=== PATIENT | male | born 1980 | race African-American/Black ===

== ENCOUNTER 2017-12-08 09:05 | Inpatient (IN) | payer OTHER ==
[2017-12-08 10:19] VITALS: BMI 21.5
--- NOTE | 2017-12-08 11:04 | HP ---
COWS - Scale Resting Pulse: 1= [place] 81-100 Sweatin=Flushed/Facial Moisture Restless Observation: 3= Extraneous Movement Pupil Size: 2= Moderately Dilated Bone or Joint Aches: 2= Severe Diffuse Aches Runny Nose/ Eye Tearin= Runny Nose/Eyes GI Upset > 30mins: 3= Vomiting/Diarrhea Tremor Observation: 2= Slight Tremor Visible Yawning Observation: 2= >3x During Session Anxiety or Irritability: 2=Irritable/Anxious Goose Flesh Skin: 0=Smooth Skin COWS Score: 21 CIWA Score - CIWA Score Nausea/Vomitin Muscle Tremors: 3 Anxiety: 3 Agitation: 3 Paroxysmal Sweats: 2 Orientation: 0-Oriented Tacttile Disturbances: 2-Mild Itch/Numbness/Burn Auditory Disturbances: 2-Mild Harshness/Frighten Visual Disturbances: 1-Very Mild Sensitivity Headache: 2-Mild CIWA-Ar Total Score: 21 Admission ROS BHS - HPI Chief Complaint: I NEED HELP TO STOP USING HEROIN,ALCOHOL,XANAX, Allergies/Adverse Reactions: Allergies Allergy/AdvReac Type Severity Reaction Status Date / Time mushroom Allergy Mild Swelling Verified 12/08/17 11:10 seafood Allergy Severe Swelling Uncoded 12/08/17 11:10 History of Present Illness: THIS 37 YEARS OLD WITH HEROIN,ALCOHOL,AND XANAX DEPENDENCE,SEEKING DETOX, WITHDRAWAL SYMPTOM,LAST DETOX [facility] 11/19 DENIED MEDICAL PROBLEM MULTIPLE ADMISSIONS IN THE PAST NICOTINE DEPENDENCE SYNCOPE ALCOHOL AND DRUG RELATED WEIGHT LOSS LONGEST PERIOD OF SOBRIETY 2 YEARS Exam Limitations: No Limitations - Ebola screening Have you traveled outside of the country in the last 21 days: No (N) Have you had contact with anyone from an Ebola affected area: No Have you been sick,other than usual withdrawal symptoms: No Do you have a fever: No - Review of Systems Constitutional: Chills, Loss of Appetite, Malaise, Night Sweats, Changes in sleep, Weakness, Unintentional Wgt. Loss EENT: reports: Tearing, Nose Congestion Respiratory: reports: No Symptoms reported Cardiac: reports: No Symptoms Reported GI: reports: Diarrhea, Nausea, Vomiting, Abdominal cramping : reports: No Symptoms Reported Musculoskeletal: reports: Back Pain, Joint Pain, Muscle Pain Neuro: reports: Headache, Tremors Endocrine: reports: No Symptoms Reported Hematology: reports: No Symptoms Reported Psychiatric: reports: No Sypmtoms Reported, Judgement Intact, Mood/Affect Appropiate, Orientated x3 Patient History - Patient Medical History Hx Anemia: No Hx Asthma: No Hx Chronic Obstructive Pulmonary Disease (COPD): No Hx Cancer: No Hx Cardiac Disorders: No Hx Congestive Heart Failure: No Hx Hypertension: No Hx Hypercholesterolemia: No Hx Pacemaker: No HX Cerebrovascular Accident: No Hx Seizures: No Hx Dementia: No Hx Diabetes: No Hx Gastrointestinal Disorders: No Hx Liver Disease: No Hx Genitourinary Disorders: No Hx Sexually Transmitted Disorders: Yes (CHLAMYDIA) Hx Renal Disease (ESRD): No Hx Thyroid Disease: No Hx Human Immunodeficiency Virus (HIV): No (LAST 11/19 NEGATIVE) Hx Hepatitis C: No Hx Depression: No Hx Suicide Attempt: No Hx Bipolar Disorder: No Hx Schizophrenia: No Other Medical History: NO SUICIDAL,NO HOMICIDAL - Patient Surgical History Past Surgical History: No - PPD History Previous Implant?: Yes Documented Results: Negative w/o proof Implanted On Prior [facility] Admission?: No PPD to be Administered?: Yes - Smoking Cessation Smoking history: Current every day smoker Have you smoked in the past 12 months: Yes Aproximately how many cigarettes per day: 10 Cigars Per Day: 0 Hx Chewing Tobacco Use: No Initiated information on smoking cessation: Yes 'Breaking Loose' booklet given: 12/08/17 - Substance & Tx. History Hx Alcohol Use: Yes Hx Substance Use: Yes Substance Use Type: Alcohol, Heroin, Tranquilizers Hx Substance Use Treatment: Yes ([facility]) - Substances Abused Alcohol Route: Oral Frequency: Daily Amount used: Beer-8-24oz, Gin 2 pints Age of first use: 16 Date of Last Use: 12/08/17 Heroin Route: Injection Frequency: Daily Amount used: 6 bags Age of first use: 35 Date of Last Use: 12/08/17 Alprazolam (Xanax) Route: Oral Frequency: Daily Amount used: 2-3 sticks (6mg) Age of first use: 35 Date of Last Use: 12/07/17 Family Disease History - Family Disease History Family Disease History: Other: Father (DSA) Admission Physical Exam BHS - Vital Signs Vital Signs: Vital Signs - 24 hr 12/08/17 10:17 Temperature 96.3 F L Pulse Rate 94 H Respiratory 18 Rate Blood Pressure 136/71 - Physical General Appearance: Yes: Moderate Distress, Tremorous, Irritable, Sweating, Anxious HEENTM: Yes: Normal ENT Inspection, [place], Pharynx Normal Respiratory: Yes: Lungs Clear, Normal Breath Sounds, No Respiratory Distress Neck: Yes: Within Normal Limits, Supple, Trachea in good position Breast: Yes: Within Normal Limits Cardiology: Yes: Within Normal Limits, Regular Rate, S1, S2, Murmur Abdominal: Yes: Normal Bowel Sounds, Non Tender, Flat, Soft Genitourinary: Yes: Within Normal Limits Back: Yes: Normal Inspection, Muscle Spasm Musculoskeletal: Yes: full range of Motion, Back pain, Joint Stiffness, Muscle Pain Extremities: Yes: Normal Range of Motion, Tremors Neurological: Yes: supply teacher II-XII NML intact, Alert, Motor Strength 5/5, Normal Mood /Affect Integumentary: Yes: Dry, Track Urias, Other (TATTOES) Lymphatic: Yes: Within Normal Limits - Diagnostic (1) Opioid dependence with withdrawal Current Visit: Yes Status: Acute (2) Alcohol dependence with uncomplicated withdrawal Current Visit: Yes Status: Acute (3) Uncomplicated sedative, hypnotic or anxiolytic withdrawal Current Visit: Yes Status: Acute (4) Nicotine dependence Current Visit: Yes Status: Chronic Qualifiers: Nicotine product type: cigarettes Substance use status: uncomplicated Qualified Code(s): F17.210 - Nicotine dependence, cigarettes, uncomplicated (5) Weight loss Current Visit: Yes Status: Acute Cleared for Admission [facility] - Detox or Rehab [facility] Level of Care: Medically Managed Detox Regimen/Protocol: Methadone/Valium S Breath Alcohol Content Breath Alcohol Content: 0.133 Urine Drug Screen - Results Drug Screen Negative: No Urine Drug Screen Results: OPI-Opiates, BZO-Benzodiazepines, MTD-Methadone, TCA- Tricyclic Antidepress, OXY-Oxycodone
[2017-12-08] MEDS ORDERED: MAGNESIUM CITRATE 300 ML BOTTLE PO PRN (11:25)
[2017-12-08] MEDS ORDERED: MAGNESIUM HYDROX 2400MG/30ML ORAL SUSPENSION 30 ML CUP PO PRN (11:25)
[2017-12-08] MEDS ORDERED: IBUPROFEN 400 MG TABLET (FP) PO PRN (11:25)
[2017-12-08] MEDS ORDERED: P-EPHED 60MG/TRIPROLIDI 2.5MG TABLET PO PRN (11:25)
[2017-12-08] MEDS ORDERED: MAG HYDROX/AL HYDROX/SIMETH 30 ML UNIT-DOSE CUP PO PRN (11:25)
[2017-12-08] MEDS ORDERED: MENTHOL/PHENOL 1 EACH UD MM PRN (11:25)
[2017-12-08] MEDS ORDERED: LOPERAMIDE HCL 2 MG CAPSULE PO PRN (11:25)
[2017-12-08] MEDS ORDERED: ACETAMINOPHEN 325 MG TABLET (FP) PO PRN (11:25)
[2017-12-08] MEDS ORDERED: guaiFENesin/D-METHORPHAN HB 10 ML UNIT-DOSE CUPS PO PRN (11:25)
[2017-12-08] MEDS ORDERED: METHADONE HCL 10 MG TABLET (FOR DETOX USE ONLY) PO ONE ×2 (11:35→23:00)
[2017-12-08] MEDS ORDERED: diazePAM 5 MG TABLET PO ONE (11:35)
[2017-12-08] MEDS ORDERED: METHADONE HCL 10 MG TABLET (FOR DETOX USE ONLY) ONE (13:58)
[2017-12-08] MEDS: NICOTINE 21 MG/24 HOURS TOPICAL PATCH TD SCH (14:12)
[2017-12-08] MEDS: diazePAM 5 MG TABLET PO SCH ×2 (14:40→22:12)
[2017-12-08] MEDS: CYCLOBENZAPRINE HCL 10 MG TABLET (FP) PO PRN (14:49)
--- NOTE | 2017-12-08 15:38 | EKG ---
Test Reason : Blood Pressure : / mmHG Vent. Rate : 095 BPM Atrial Rate : 095 BPM P-R Int : 138 ms QRS Dur : 084 ms QT Int : 348 ms P-R-T Axes : 074 067 061 degrees QTc Int : 437 ms NORMAL SINUS RHYTHM WITH SINUS ARRHYTHMIA CANNOT RULE OUT ANTERIOR INFARCT , AGE UNDETERMINED ABNORMAL ECG NO PREVIOUS ECGS AVAILABLE Confirmed by JEMIMA EDOUARD MD ([id number]) on 12/08/2017 3:38:02 PM Referred By: Confirmed By:JEMIMA EDOUARD MD
[2017-12-08 17:50] LABS: HEMATOCRIT 41.1 % (35.4-49); HEMOGLOBIN 13.6 GM/dL (11.7-16.9); MEAN CELL VOLUME 93.7 fl (80-96); MEAN PLT VOLUME 9.2 fl (7.5-11.1); PLATELET COUNT 227 K/MM3 (134-434); RBC 4.39 M/mm3 (4.00-5.60); RDW 13.4 % (11.9-15.9)
[2017-12-08 18:10] LABS: ALBUMIN 4.3 g/dl (3.4-5.0); ALK PHOS 80 U/L (45-117); ANION GAP 11 (8-16); BILIRUBIN,TOTAL 0.3 mg/dL (0.2-1.0); BLOOD UREA NITROGEN 10 mg/dL (7-18); CALCIUM 8.6 mg/dL (8.5-10.1); CHLORIDE 103 mmol/L (98-107); CO2 28 mmol/L (21-32); CREATININE 0.7 mg/dL (0.7-1.3); GLUCOSE,RANDOM 95 mg/dL (74-106); POTASSIUM 3.8 mmol/L (3.5-5.1); SGOT/AST 26 U/L (15-37); SGPT/ALT 19 U/L (12-78); SODIUM 142 mmol/L (136-145); TOT PROT 7.5 g/dl (6.4-8.2)
[2017-12-08 18:56] LABS: URINE APPEARANCE TURBID; URINE BILIRUBIN NEGATIVE (NEGATIVE); URINE BLOOD NEGATIVE (NEGATIVE); URINE COLOR YELLOW; URINE GLUCOSE (UA) NEGATIVE (NEGATIVE); URINE KETONE NEGATIVE (NEGATIVE); URINE LEUK ESTERASE NEGATIVE (NEGATIVE); URINE NITRITE NEGATIVE (NEGATIVE); URINE UROBILINOGEN NEGATIVE mg/dL (0.2-1.0)
[2017-12-08 18:58] LABS: URINE PROTEIN 1+ (NEGATIVE)
[2017-12-08 19:02] LABS: EPI CELLS RARE /HPF (FEW); URINE MUCUS MANY
[2017-12-08] MEDS: cloNIDine HCL 0.1 MG TABLET PO SCH (22:12)
[2017-12-08] MEDS: hydrOXYzine PAMOATE 25 MG CAPSULE (FP) PO PRN (22:12)
[2017-12-08] MEDS: THIAMINE HCL 100 MG TABLET (FP) PO SCH (22:12)
[2017-12-08] MEDS ORDERED: ONDANSETRON *ODT* 4 MG TABLET SL PRN (22:53)
[2017-12-09] MEDS: diazePAM 5 MG TABLET PO SCH ×3 (06:00→22:05)
[2017-12-09] MEDS ORDERED: METHADONE HCL 10 MG TABLET (FOR DETOX USE ONLY) PO SCH (10:00)
[2017-12-09] MEDS: PRENATAL VITAMINS W/ FOLIC ACID TABLET (FP) PO SCH (10:15)
[2017-12-09] MEDS: diazePAM 5 MG TABLET PO PRN ×2 (10:15→17:48)
[2017-12-09] MEDS: NICOTINE 21 MG/24 HOURS TOPICAL PATCH TD SCH (10:16)
[2017-12-09] MEDS: cloNIDine HCL 0.1 MG TABLET PO SCH ×2 (10:16→23:34)
--- NOTE | 2017-12-09 17:36 | PN ---
S CIWA - CIWA Score Nausea/Vomitin Muscle Tremors: 2 Anxiety: 3 Agitation: 2 Paroxysmal Sweats: 3 Orientation: 0-Oriented Tacttile Disturbances: 2-Mild Itch/Numbness/Burn Auditory Disturbances: 0-None Visual Disturbances: 0-None Headache: 0-None Present CIWA-Ar Total Score: 18 BHS COWS - Scale Resting Pulse: 0= [place] 80 or Below Sweatin=Flushed/Facial Moisture Restless Observation: 1= Difficult to Sit Still Pupil Size: 0= Normal to Room Light Bone or Joint Aches: 2= Severe Diffuse Aches Runny Nose/ Eye Tearin= None GI Upset > 30mins: 3= Vomiting/Diarrhea Tremor Observation of Outstretched Hands: 0= None Yawning Observation: 1= 1-2x During Session Anxiety or Irritability: 2=Irritable/Anxious Goose Flesh Skin: 3=Piloerection COWS Score: 14 BHS Progress Note (SOAP) Subjective: Body Aches, Sweating, Vomiting. Objective: PATIENT A & O X 3, OBSERVED AMBULATING ON UNIT. NO ACUTE DISTRESS. 12/09/17 17:32 Vital Signs Temperature 96.7 F L 12/09/17 14:20 Pulse Rate 78 12/09/17 14:20 Respiratory Rate 18 12/09/17 14:20 Blood Pressure 98/59 12/09/17 14:20 O2 Sat by Pulse Oximetry (%) Laboratory Tests 12/08/17 12/08/17 12/08/17 15:31 15:31 15:31 WBC 10.0 RBC 4.39 Hgb 13.6 Hct 41.1 MCV 93.7 MCH 31.0 MCHC 33.0 RDW 13.4 Plt Count 227 MPV 9.2 Sodium 142 Potassium 3.8 Chloride 103 Carbon Dioxide 28 Anion Gap 11 BUN 10 Creatinine 0.7 Creat Clearance w eGFR > 60 Random Glucose 95 Calcium 8.6 Total Bilirubin 0.3 AST 26 ALT 19 Alkaline Phosphatase 80 Total Protein 7.5 Albumin 4.3 Urine Color Urine Appearance Urine pH Ur Specific [place] Urine Protein Urine Glucose (UA) Urine Ketones Urine Blood Urine Nitrite Urine Bilirubin Urine Urobilinogen Ur Leukocyte Esterase Urine WBC (Auto) Urine RBC (Auto) Ur Epithelial Cells Urine Mucus RPR Titer Nonreactive HIV 1&2 Antibody Screen HIV P24 Antigen 12/08/17 12/09/17 Unknown 08:30 WBC RBC Hgb Hct MCV MCH MCHC RDW Plt Count MPV Sodium Potassium Chloride Carbon Dioxide Anion Gap BUN Creatinine Creat Clearance w eGFR Random Glucose Calcium Total Bilirubin AST ALT Alkaline Phosphatase Total Protein Albumin Urine Color Yellow Urine Appearance Turbid Urine pH 6.0 Ur Specific [place] 1.027 Urine Protein 1+ H Urine Glucose (UA) Negative Urine Ketones Negative Urine Blood Negative Urine Nitrite Negative Urine Bilirubin Negative Urine Urobilinogen Negative Ur Leukocyte Esterase Negative Urine WBC (Auto) 83 Urine RBC (Auto) 4 Ur Epithelial Cells Rare Urine Mucus Many RPR Titer HIV 1&2 Antibody Screen Negative HIV P24 Antigen Negative LABS NOTED. Assessment: 12/09/17 17:32 WITHDRAWAL SYMPTOMS. Plan: CONTINUE DETOX. PATIENT REPORTING VOMITING WITHIN SHORT TIME AFTER TAKING DETOX METHADONE IN AM. ZOFRAN SL ORDERED TO BE TAKEN PRIOR TO DAILY AM DOSING OF METHADONE DETOX. INCREASE DAILY PO FLUID INTAKE.
[2017-12-09] MEDS: THIAMINE HCL 100 MG TABLET (FP) PO SCH (22:04)
[2017-12-09] MEDS: CYCLOBENZAPRINE HCL 10 MG TABLET (FP) PO PRN (22:05)
[2017-12-09] MEDS: hydrOXYzine PAMOATE 25 MG CAPSULE (FP) PO PRN (22:07)
[2017-12-10] MEDS: ONDANSETRON *ODT* 4 MG TABLET SL SCH (09:08)
[2017-12-10] MEDS: METHADONE HCL 5 MG TABLET (FOR DETOX USE ONLY) PO SCH (10:07)
[2017-12-10] MEDS: diazePAM 5 MG TABLET PO SCH (10:07)
[2017-12-10] MEDS: NICOTINE 21 MG/24 HOURS TOPICAL PATCH TD SCH (10:08)
[2017-12-10] MEDS: PRENATAL VITAMINS W/ FOLIC ACID TABLET (FP) PO SCH (10:08)
[2017-12-10] MEDS: cloNIDine HCL 0.1 MG TABLET PO SCH (10:08)
[2017-12-10] MEDS ORDERED: COLLOIDAL OATMEAL 1 BAR EACH TP PRN (10:22)
--- NOTE | 2017-12-10 15:27 | PN ---
S CIWA - CIWA Score Nausea/Vomitin Muscle Tremors: 3 Anxiety: 4-Mod. Anxious/Guarded Agitation: 4-Moderately Restless Paroxysmal Sweats: 3 Orientation: 0-Oriented Tacttile Disturbances: 0-None Auditory Disturbances: 0-None Visual Disturbances: 0-None Headache: 0-None Present CIWA-Ar Total Score: 17 BHS COWS - Scale Resting Pulse: 0= [place] 80 or Below Sweatin= Chills/Flushing Restless Observation: 3= Extraneous Movement Pupil Size: 0= Normal to Room Light Bone or Joint Aches: 2= Severe Diffuse Aches Runny Nose/ Eye Tearin= None GI Upset > 30mins: 2= Nausea/Diarrhea Tremor Observation of Outstretched Hands: 2= Slight Tremor Visible Yawning Observation: 1= 1-2x During Session Anxiety or Irritability: 2=Irritable/Anxious Goose Flesh Skin: 0=Smooth Skin COWS Score: 13 S Progress Note (SOAP) Subjective: sweating, anxious, interrupted sleep Objective: 12/10/17 15:25 Last Vital Signs Temp Pulse Resp BP Pulse Ox 98 F 73 18 105/73 12/10/17 14:17 12/10/17 14:17 12/10/17 14:17 12/10/17 14:17 Laboratory Tests 12/08/17 12/08/17 12/08/17 15:31 15:31 15:31 WBC 10.0 RBC 4.39 Hgb 13.6 Hct 41.1 MCV 93.7 MCH 31.0 MCHC 33.0 RDW 13.4 Plt Count 227 MPV 9.2 Sodium 142 Potassium 3.8 Chloride 103 Carbon Dioxide 28 Anion Gap 11 BUN 10 Creatinine 0.7 Creat Clearance w eGFR > 60 Random Glucose 95 Calcium 8.6 Total Bilirubin 0.3 AST 26 ALT 19 Alkaline Phosphatase 80 Total Protein 7.5 Albumin 4.3 Urine Color Urine Appearance Urine pH Ur Specific [place] Urine Protein Urine Glucose (UA) Urine Ketones Urine Blood Urine Nitrite Urine Bilirubin Urine Urobilinogen Ur Leukocyte Esterase Urine WBC (Auto) Urine RBC (Auto) Ur Epithelial Cells Urine Mucus RPR Titer Nonreactive HIV 1&2 Antibody Screen HIV P24 Antigen 12/08/17 12/09/17 Unknown 08:30 WBC RBC Hgb Hct MCV MCH MCHC RDW Plt Count MPV Sodium Potassium Chloride Carbon Dioxide Anion Gap BUN Creatinine Creat Clearance w eGFR Random Glucose Calcium Total Bilirubin AST ALT Alkaline Phosphatase Total Protein Albumin Urine Color Yellow Urine Appearance Turbid Urine pH 6.0 Ur Specific [place] 1.027 Urine Protein 1+ H Urine Glucose (UA) Negative Urine Ketones Negative Urine Blood Negative Urine Nitrite Negative Urine Bilirubin Negative Urine Urobilinogen Negative Ur Leukocyte Esterase Negative Urine WBC (Auto) 83 Urine RBC (Auto) 4 Ur Epithelial Cells Rare Urine Mucus Many RPR Titer HIV 1&2 Antibody Screen Negative HIV P24 Antigen Negative Labs noted: abnormal UA Assessment: 12/10/17 15:26 Withdrawal symptoms Noted with abnormal UA Plan: Continue detox Abnormal UA: encouraged to drink lots of water, repeat UA
[2017-12-10] MEDS: diazePAM 5 MG TABLET PO PRN (17:51)
[2017-12-10] MEDS: CYCLOBENZAPRINE HCL 10 MG TABLET (FP) PO PRN (17:52)
[2017-12-11] MEDS: diazePAM 5 MG TABLET PO PRN (05:38)
[2017-12-11] MEDS: CYCLOBENZAPRINE HCL 10 MG TABLET (FP) PO PRN ×2 (05:38→18:05)
--- NOTE | 2017-12-11 09:22 | PN ---
[facility] Progress Note (SOAP) Subjective: "I had a good weekend. The methadone is making me nauseous, it always does." Patient c/o anxiety and weight loss. Objective: 12/11/17 09:20 Vital Signs 12/11/17 12/11/17 03:30 06:42 Temperature 97.4 F L Pulse Rate 81 Respiratory 18 16 Rate Blood Pressure 122/69 Laboratory Last Values WBC 10.0 K/mm3 (4.0-10.0) 12/08/17 15:31 RBC 4.39 M/mm3 (4.00-5.60) 12/08/17 15:31 Hgb 13.6 GM/dL (11.7-16.9) 12/08/17 15:31 Hct 41.1 % (35.4-49) 12/08/17 15:31 MCV 93.7 fl (80-96) 12/08/17 15:31 MCH 31.0 pg (25.7-33.7) 12/08/17 15:31 MCHC 33.0 g/dl (32.0-35.9) 12/08/17 15:31 RDW 13.4 % (11.9-15.9) 12/08/17 15:31 Plt Count 227 K/MM3 (134-434) 12/08/17 15:31 MPV 9.2 fl (7.5-11.1) 12/08/17 15:31 Sodium 142 mmol/L (136-145) 12/08/17 15:31 Potassium 3.8 mmol/L (3.5-5.1) 12/08/17 15:31 Chloride 103 mmol/L (98-107) 12/08/17 15:31 Carbon Dioxide 28 mmol/L (21-32) 12/08/17 15:31 Anion Gap 11 (8-16) 12/08/17 15:31 BUN 10 mg/dL (7-18) 12/08/17 15:31 Creatinine 0.7 mg/dL (0.7-1.3) 12/08/17 15:31 Creat Clearance w eGFR > 60 (>60) 12/08/17 15:31 Random Glucose 95 mg/dL (74-106) 12/08/17 15:31 Calcium 8.6 mg/dL (8.5-10.1) 12/08/17 15:31 Total Bilirubin 0.3 mg/dL (0.2-1.0) 12/08/17 15:31 AST 26 U/L (15-37) 12/08/17 15:31 ALT 19 U/L (12-78) 12/08/17 15:31 Alkaline Phosphatase 80 U/L (45-117) 12/08/17 15:31 Total Protein 7.5 g/dl (6.4-8.2) 12/08/17 15:31 Albumin 4.3 g/dl (3.4-5.0) 12/08/17 15:31 Urine Color Yellow 12/08/17 Unknown Urine Appearance Turbid 12/08/17 Unknown Urine pH 6.0 (5.0-8.0) 12/08/17 Unknown Ur Specific [place] 1.027 (1.001-1.035) 12/08/17 Unknown Urine Protein 1+ (NEGATIVE) H 12/08/17 Unknown Urine Glucose (UA) Negative (NEGATIVE) 12/08/17 Unknown Urine Ketones Negative (NEGATIVE) 12/08/17 Unknown Urine Blood Negative (NEGATIVE) 12/08/17 Unknown Urine Nitrite Negative (NEGATIVE) 12/08/17 Unknown Urine Bilirubin Negative (NEGATIVE) 12/08/17 Unknown Urine Urobilinogen Negative mg/dL (0.2-1.0) 12/08/17 Unknown Ur Leukocyte Esterase Negative (NEGATIVE) 12/08/17 Unknown Urine WBC (Auto) 83 /hpf (3-5) 12/08/17 Unknown Urine RBC (Auto) 4 /hpf (0-3) 12/08/17 Unknown Ur Epithelial Cells Rare /HPF (FEW) 12/08/17 Unknown Urine Mucus Many 12/08/17 Unknown RPR Titer Nonreactive (NONREACTIVE) 12/08/17 15:31 HIV 1&2 Antibody Screen Negative 12/09/17 08:30 HIV P24 Antigen Negative 12/09/17 08:30 Assessment: Withdrawal symptoms 12/11/17 09:21 Plan: Continue detox
[2017-12-11] MEDS: METHADONE HCL 5 MG TABLET (FOR DETOX USE ONLY) PO SCH (10:08)
[2017-12-11] MEDS: PRENATAL VITAMINS W/ FOLIC ACID TABLET (FP) PO SCH (10:08)
[2017-12-11] MEDS: cloNIDine HCL 0.1 MG TABLET PO SCH ×3 (10:09→23:29)
[2017-12-11] MEDS: ONDANSETRON *ODT* 4 MG TABLET SL SCH (10:09)
[2017-12-11] MEDS: diazePAM 5 MG TABLET PO SCH ×3 (10:09→23:29)
[2017-12-11] MEDS: NICOTINE 21 MG/24 HOURS TOPICAL PATCH TD SCH (10:09)
--- NOTE | 2017-12-11 16:14 | PN ---
S Progress Note Note: PT REPORTS DYSURIA X 3 DAYS AND SMALL OUTPUT EACH TIME. STATES LOWER ABDOMINAL FULLNESS. ALERT O X 3. OOB AMBULATING AND IN NO DISTRESS. Laboratory Last Values WBC 10.0 K/mm3 (4.0-10.0) 12/08/17 15:31 RBC 4.39 M/mm3 (4.00-5.60) 12/08/17 15:31 Hgb 13.6 GM/dL (11.7-16.9) 12/08/17 15:31 Hct 41.1 % (35.4-49) 12/08/17 15:31 MCV 93.7 fl (80-96) 12/08/17 15:31 MCH 31.0 pg (25.7-33.7) 12/08/17 15:31 MCHC 33.0 g/dl (32.0-35.9) 12/08/17 15:31 RDW 13.4 % (11.9-15.9) 12/08/17 15:31 Plt Count 227 K/MM3 (134-434) 12/08/17 15:31 MPV 9.2 fl (7.5-11.1) 12/08/17 15:31 Sodium 142 mmol/L (136-145) 12/08/17 15:31 Potassium 3.8 mmol/L (3.5-5.1) 12/08/17 15:31 Chloride 103 mmol/L (98-107) 12/08/17 15:31 Carbon Dioxide 28 mmol/L (21-32) 12/08/17 15:31 Anion Gap 11 (8-16) 12/08/17 15:31 BUN 10 mg/dL (7-18) 12/08/17 15:31 Creatinine 0.7 mg/dL (0.7-1.3) 12/08/17 15:31 Creat Clearance w eGFR > 60 (>60) 12/08/17 15:31 Random Glucose 95 mg/dL (74-106) 12/08/17 15:31 Calcium 8.6 mg/dL (8.5-10.1) 12/08/17 15:31 Total Bilirubin 0.3 mg/dL (0.2-1.0) 12/08/17 15:31 AST 26 U/L (15-37) 12/08/17 15:31 ALT 19 U/L (12-78) 12/08/17 15:31 Alkaline Phosphatase 80 U/L (45-117) 12/08/17 15:31 Total Protein 7.5 g/dl (6.4-8.2) 12/08/17 15:31 Albumin 4.3 g/dl (3.4-5.0) 12/08/17 15:31 Urine Color Yellow 12/08/17 Unknown Urine Appearance Turbid 12/08/17 Unknown Urine pH 6.0 (5.0-8.0) 12/08/17 Unknown Ur Specific [place] 1.027 (1.001-1.035) 12/08/17 Unknown Urine Protein 1+ (NEGATIVE) H 12/08/17 Unknown Urine Glucose (UA) Negative (NEGATIVE) 12/08/17 Unknown Urine Ketones Negative (NEGATIVE) 12/08/17 Unknown Urine Blood Negative (NEGATIVE) 12/08/17 Unknown Urine Nitrite Negative (NEGATIVE) 12/08/17 Unknown Urine Bilirubin Negative (NEGATIVE) 12/08/17 Unknown Urine Urobilinogen Negative mg/dL (0.2-1.0) 12/08/17 Unknown Ur Leukocyte Esterase Negative (NEGATIVE) 12/08/17 Unknown Urine WBC (Auto) 83 /hpf (3-5) 12/08/17 Unknown Urine RBC (Auto) 4 /hpf (0-3) 12/08/17 Unknown Ur Epithelial Cells Rare /HPF (FEW) 12/08/17 Unknown Urine Mucus Many 12/08/17 Unknown RPR Titer Nonreactive (NONREACTIVE) 12/08/17 15:31 HIV 1&2 Antibody Screen Negative 12/09/17 08:30 HIV P24 Antigen Negative 12/09/17 08:30 ABDOMEN:SOFT, BS+ UPPER QUADS. SLIGHT TENDERNESS TO LOWER ABDOMEN ON PALPATION. NO TENDERNESS TO UPPER AND MID ABDOMEN. SLIGHTLY DISTENDED LOWER ABDOMEN. LABS NOTED REPEAT UA PENDING R/O UTI PLAN:MONITOR URINE OUTPUT FOR NEXT 24 HRS. REPEAT UA; ADD UC TODAY PT UNABLE TO GIVE URINE NOTED ABOVE. SPOKE TO DR. HERNANDEZ AT [facility] AND PATIENT WILL BE TRANSFERRED VIA AMBULANCE TO [facility] FOR EVALUATION AND TREATMENT.
[2017-12-11] MEDS: hydrOXYzine PAMOATE 25 MG CAPSULE (FP) PO PRN (23:31)
[2017-12-11] MEDS: THIAMINE HCL 100 MG TABLET (FP) PO SCH ×2 (23:44)
[2017-12-12] MEDS ORDERED: ONDANSETRON *ODT* 4 MG TABLET SL ONE (09:33)
[2017-12-12] MEDS ORDERED: METHADONE HCL 10 MG TABLET (FOR DETOX USE ONLY) PO SCH (10:00)
[2017-12-12] MEDS ORDERED: diazePAM 5 MG TABLET PO SCH (10:00)
[2017-12-12 10:05] LABS: URINE APPEARANCE CLOUDY; URINE BILIRUBIN NEGATIVE (NEGATIVE); URINE BLOOD NEGATIVE (NEGATIVE); URINE COLOR YELLOW; URINE GLUCOSE (UA) NEGATIVE (NEGATIVE); URINE KETONE NEGATIVE (NEGATIVE); URINE LEUK ESTERASE NEGATIVE (NEGATIVE); URINE NITRITE NEGATIVE (NEGATIVE); URINE PROTEIN NEGATIVE (NEGATIVE); URINE UROBILINOGEN NEGATIVE mg/dL (0.2-1.0)
[2017-12-12] MEDS: cloNIDine HCL 0.1 MG TABLET PO SCH (10:08)
[2017-12-12] MEDS: PRENATAL VITAMINS W/ FOLIC ACID TABLET (FP) PO SCH (10:08)
[2017-12-12] MEDS: NICOTINE 21 MG/24 HOURS TOPICAL PATCH TD SCH (10:08)
[2017-12-12] MEDS: CYCLOBENZAPRINE HCL 10 MG TABLET (FP) PO PRN (10:08)
--- NOTE | 2017-12-12 10:41 | PN ---
[facility] Progress Note (SOAP) Subjective: PT RETURNED FROM [facility] LAST NIGHT AFTER STABILIZATION. ABLE TO URINATE ON HIS OWN. C/O NAUSEA ANXIETY. Objective: 12/12/17 10:38 Vital Signs Temperature 98.2 F 12/12/17 10:10 Pulse Rate 82 12/12/17 10:10 Respiratory Rate 18 12/12/17 10:10 Blood Pressure 108/65 12/12/17 10:10 O2 Sat by Pulse Oximetry (%) Laboratory Last Values WBC 10.0 K/mm3 (4.0-10.0) 12/08/17 15:31 RBC 4.39 M/mm3 (4.00-5.60) 12/08/17 15:31 Hgb 13.6 GM/dL (11.7-16.9) 12/08/17 15:31 Hct 41.1 % (35.4-49) 12/08/17 15:31 MCV 93.7 fl (80-96) 12/08/17 15:31 MCH 31.0 pg (25.7-33.7) 12/08/17 15:31 MCHC 33.0 g/dl (32.0-35.9) 12/08/17 15:31 RDW 13.4 % (11.9-15.9) 12/08/17 15:31 Plt Count 227 K/MM3 (134-434) 12/08/17 15:31 MPV 9.2 fl (7.5-11.1) 12/08/17 15:31 Sodium 142 mmol/L (136-145) 12/08/17 15:31 Potassium 3.8 mmol/L (3.5-5.1) 12/08/17 15:31 Chloride 103 mmol/L (98-107) 12/08/17 15:31 Carbon Dioxide 28 mmol/L (21-32) 12/08/17 15:31 Anion Gap 11 (8-16) 12/08/17 15:31 BUN 10 mg/dL (7-18) 12/08/17 15:31 Creatinine 0.7 mg/dL (0.7-1.3) 12/08/17 15:31 Creat Clearance w eGFR > 60 (>60) 12/08/17 15:31 Random Glucose 95 mg/dL (74-106) 12/08/17 15:31 Calcium 8.6 mg/dL (8.5-10.1) 12/08/17 15:31 Total Bilirubin 0.3 mg/dL (0.2-1.0) 12/08/17 15:31 AST 26 U/L (15-37) 12/08/17 15:31 ALT 19 U/L (12-78) 12/08/17 15:31 Alkaline Phosphatase 80 U/L (45-117) 12/08/17 15:31 Total Protein 7.5 g/dl (6.4-8.2) 12/08/17 15:31 Albumin 4.3 g/dl (3.4-5.0) 12/08/17 15:31 Urine Color Yellow 12/12/17 08:15 Urine Appearance Cloudy 12/12/17 08:15 Urine pH 7.0 (5.0-8.0) D 12/12/17 08:15 Ur Specific [place] 1.018 (1.001-1.035) 12/12/17 08:15 Urine Protein Negative (NEGATIVE) 12/12/17 08:15 Urine Glucose (UA) Negative (NEGATIVE) 12/12/17 08:15 Urine Ketones Negative (NEGATIVE) 12/12/17 08:15 Urine Blood Negative (NEGATIVE) 12/12/17 08:15 Urine Nitrite Negative (NEGATIVE) 12/12/17 08:15 Urine Bilirubin Negative (NEGATIVE) 12/12/17 08:15 Urine Urobilinogen Negative mg/dL (0.2-1.0) 12/12/17 08:15 Ur Leukocyte Esterase Negative (NEGATIVE) 12/12/17 08:15 Urine WBC (Auto) 83 /hpf (3-5) 12/08/17 Unknown Urine RBC (Auto) 4 /hpf (0-3) 12/08/17 Unknown Ur Epithelial Cells Rare /HPF (FEW) 12/08/17 Unknown Urine Mucus Many 12/08/17 Unknown RPR Titer Nonreactive (NONREACTIVE) 12/08/17 15:31 HIV 1&2 Antibody Screen Negative 12/09/17 08:30 HIV P24 Antigen Negative 12/09/17 08:30 Assessment: 12/12/17 10:38 WITHDRAWAL SX Plan: CONTINUE DETOX REPEAT UA AND UC RESULT PENDING
[2017-12-12 15:19] VITALS: BP 100/63; PULSE 77; TEMP 97.9
--- NOTE | 2017-12-12 15:55 | PN ---
[facility] Progress Note Note: PT DECLINED TO COMPLETE DETOX AND DEMANDED TO LEAVE TODAY. STATES HIS SIGNIFICANT OTHER IS IN AGREEMENT FOR THEM TO LEAVE TREATMENT TODAY. PT APPEARED VERY ANGRY AND AGITATED TOWARD ANY EFFORT BY STAFF OR THIS EXPERIMENTAL WORKER TO ENCOURAGE PT TO STAY IN TREATMENT AND SEEK AFTERCARE. PT IS ALERT O X 3. IN NAD. PT WAS NOT ABLE TO GIVE ANY INFORMATION ABOUT HIS PRIMARY CARE BUT STATES "I DON'T HAVE ANY AND I DON'T GET SICK. I GO TO THE EMERGENCY ROOM". PT REMINDED TO SEEK MEDICAL ATTENTION IN ANY ER NEAR HIM WHEN NEEDED.
--- NOTE | 2017-12-12 16:00 | DS ---
[facility] Detox Discharge Summary Admission Date: 12/08/17 Discharge Date: 12/12/17 - History Present History: Alcohol Dependence, Opioid Dependence, Sedative Dependence Additional Comments: DECLINED TO CONTINUE WITH DETOX. ALERT O X 3.NAD. Pertinent Past History: SEE DX BELOW - Physical Exam Results Vital Signs: Vital Signs Temperature 97.9 F 12/12/17 15:17 Pulse Rate 77 12/12/17 15:17 Respiratory Rate 18 12/12/17 15:17 Blood Pressure 100/63 12/12/17 15:17 O2 Sat by Pulse Oximetry (%) Pertinent Admission Physical Exam Findings: WITHDRAWAL SX Laboratory Tests 12/08/17 12/08/17 12/08/17 15:31 15:31 15:31 WBC 10.0 RBC 4.39 Hgb 13.6 Hct 41.1 MCV 93.7 MCH 31.0 MCHC 33.0 RDW 13.4 Plt Count 227 MPV 9.2 Sodium 142 Potassium 3.8 Chloride 103 Carbon Dioxide 28 Anion Gap 11 BUN 10 Creatinine 0.7 Creat Clearance w eGFR > 60 Random Glucose 95 Calcium 8.6 Total Bilirubin 0.3 AST 26 ALT 19 Alkaline Phosphatase 80 Total Protein 7.5 Albumin 4.3 Urine Color Urine Appearance Urine pH Ur Specific [place] Urine Protein Urine Glucose (UA) Urine Ketones Urine Blood Urine Nitrite Urine Bilirubin Urine Urobilinogen Ur Leukocyte Esterase Urine WBC (Auto) Urine RBC (Auto) Ur Epithelial Cells Urine Mucus RPR Titer Nonreactive HIV 1&2 Antibody Screen HIV P24 Antigen 12/08/17 12/09/17 12/12/17 Unknown 08:30 08:15 WBC RBC Hgb Hct MCV MCH MCHC RDW Plt Count MPV Sodium Potassium Chloride Carbon Dioxide Anion Gap BUN Creatinine Creat Clearance w eGFR Random Glucose Calcium Total Bilirubin AST ALT Alkaline Phosphatase Total Protein Albumin Urine Color Yellow Yellow Urine Appearance Turbid Cloudy Urine pH 6.0 7.0 D Ur Specific [place] 1.027 1.018 Urine Protein 1+ H Negative Urine Glucose (UA) Negative Negative Urine Ketones Negative Negative Urine Blood Negative Negative Urine Nitrite Negative Negative Urine Bilirubin Negative Negative Urine Urobilinogen Negative Negative Ur Leukocyte Esterase Negative Negative Urine WBC (Auto) 83 Urine RBC (Auto) 4 Ur Epithelial Cells Rare Urine Mucus Many RPR Titer HIV 1&2 Antibody Screen Negative HIV P24 Antigen Negative REPEAT UA WNL - Treatment Hospital Course: Discharged Condition Good - Medication Discharge Medications: Ambulatory Orders NK [No Known Home Medication] 12/08/17 - Diagnosis (1) Abnormal urinalysis Current Visit: Yes Status: Acute (2) Alcohol dependence with uncomplicated withdrawal Current Visit: Yes Status: Acute (3) Opioid dependence with withdrawal Current Visit: Yes Status: Acute (4) Uncomplicated sedative, hypnotic or anxiolytic withdrawal Current Visit: Yes Status: Acute (5) Weight loss Current Visit: Yes Status: Acute (6) Nicotine dependence Current Visit: Yes Status: Acute Qualifiers: Nicotine product type: cigarettes Substance use status: in withdrawal Qualified Code(s): F17.213 - Nicotine dependence, cigarettes, with withdrawal (7) Urinary retention Current Visit: Yes Status: Acute - AMA Did Patient Leave Against Medical Advice: Yes (AMA)
[2017-12-13] MEDS ORDERED: METHADONE HCL 5 MG TABLET (FOR DETOX USE ONLY) PO SCH (06:00)
== END 2017-12-12 16:00 | disposition left against medical advice (07) | DRG 770 ==
LOC: YASAS 09:05 → Y3N 11:20
PROVIDERS: ADMIT Internal Medicine; ATTEND Internal Medicine
PROC: HZ2ZZZZ Detoxification Services for Substance Abuse Treatment (ICD-10-PCS; principal; 2017-12-08)
DX: F11.23 Opioid dependence with withdrawal (principal); F13.230 Sedative, hypnotic or anxiolytic dependence with withdrawal, uncomplicated; F10.230 Alcohol dependence with withdrawal, uncomplicated; F17.213 Nicotine dependence, cigarettes, with withdrawal; R82.90 Unspecified abnormal findings in urine; R33.9 Retention of urine, unspecified; R01.1 Cardiac murmur, unspecified; Z87.438 Personal history of other diseases of male genital organs; Z91.013 Allergy to seafood; Z87.898 Personal history of other specified conditions
CPT/HCPCS: 36415; 80053; 81003; 81015; 85027; 86593; 87086; 87389; 93005; 93010; J0735; Q0162

== ENCOUNTER 2017-12-11 19:17 | Emergency (ER) | payer OTHER ==
[2017-12-11 19:46] VITALS: BP 121/80; PULSE 97; TEMP 98.8; BMI 22.4
--- NOTE | 2017-12-11 19:49 | PDOC ---
History of Present Illness - History of Present Illness Initial Comments: 12/11/17 20:04 37 year old male with pmh of heroin abuse on methadone who presented to ED from [facility] due to urinary retention . last use of heroin last Monday. He is on methadone 20, Monday 10 and Monday 5 mg. this is the first time happening to him. He denies any burning sensation , or blood in urine. he denies any fever, chills,headache ,sore throat , recent cold or sick contact. he denies chest pain , sob, palpitation. He denies any abdominal pain, n/d/c, he vomited one time non bloody non bilious. denies any leg swelling or joint pain. PMH: heroin abuse PSH: none Allergies : NKDA. Meds : Methadone , multivitamins , Valium 10 mg bID , Vistaril 100 mg HS social : smoke 1/2 pack ppd since age of 16, drink licker daily 16 onz , use heroin and last use last Monday, use cocain long time ago. pt is and has one kid. FH: non significant 12/11/17 20:13 <Lopez Mcmahan - Last Filed: 12/11/17 20:26> <Lucia Tobar - Last Filed: 12/11/17 22:46> - General Chief Complaint: Pain Stated Complaint: URINARY RETENTION Time Seen by Provider: 12/11/17 19:43 Past History - Travel Traveled outside of the country in the last 30 days: No Close contact w/someone who was outside of country & ill: No - Past Medical History Anemia: No Asthma: No Cancer: No Cardiac Disorders: No CVA: No COPD: No CHF: No Dementia: No Diabetes: No GI Disorders: No Disorders: No HTN: No Hypercholesterolemia: No Liver Disease: No Seizures: No Thyroid Disease: No - Surgical History Abdominal Surgery: No Appendectomy: No Cardiac Surgery: No Cholecystectomy: No Gastric Stapling: No GI Surgery: No Lung Surgery: No Neurologic Surgery: No Orthopedic Surgery: No - Suicide/Smoking/Psychosocial Hx Smoking History: Current every day smoker Have you smoked in the past 12 months: Yes Number of Cigarettes Smoked Daily: 10 Cigars Per Day: 0 Information on smoking cessation initiated: No 'Breaking Loose' booklet given: 03/09/18 Hx Alcohol Use: Yes Drug/Substance Use Hx: Yes Substance Use Type: Alcohol, Heroin, Tranquilizers Hx Substance Use Treatment: Yes ([facility]) <Lopez Mcmahan - Last Filed: 12/11/17 20:26> <AmadouLuciaangelo Vaughan - Last Filed: 12/11/17 22:46> - Past Medical History Allergies/Adverse Reactions: Allergies Allergy/AdvReac Type Severity Reaction Status Date / Time mushroom Allergy Mild Swelling Verified 12/08/17 11:10 seafood Allergy Severe Swelling Uncoded 12/08/17 11:10 Home Medications: Ambulatory Orders NK [No Known Home Medication] 12/08/17 Review of Systems - Review of Systems Able to Perform ROS?: Yes Is the patient limited [place]at[place] proficient: No Constitutional: No: Symptoms Reported, See HPI, Chills, Diaphoresis, Fever, Loss of Appetite, Malaise, Night Sweats, Weakness, Weight Stable, Unintentional Wgt. Loss, Unexplained wgt Loss, Other HEENTM: No: Symptoms Reported, See HPI, Eye Pain, Blurred Vision, Tearing, Recent change in vision, Double Vision, Cataracts, Ear Pain, Ocular Prothesis, Ear Discharge, Nose Pain, Nose Congestion, Tinnitus, Nose Bleeding, Hearing Loss , Throat Pain, Throat Swelling, Mouth Pain, Dental Problems, Difficulty Swallowing, Mouth Swelling, Other Respiratory: No: Symptoms reported, See HPI, Cough, Orthopnea, Shortness of Breath, SOB with Exertion, SOB at Rest, Stridor, Wheezing, Productive cough, Hemoptysis, Other Cardiac (ROS): No: Symptoms Reported, See HPI, Chest Pain, Edema, Irregular Heart Rate, Lightheadedness, Palpitations, Syncope, Chest Tightness, Other ABD/GI: No: Symptoms Reported, See HPI, Abdominal Distended, Abd. Pain w/ defecation, Blood Streaked Bowels (vomiting one time non bilious no bloody ), Constipated, Diarrhea, Difficulty Swallowing, Nausea, Poor Appetite, Poor Fluid Intake, Rectal Bleeding, Vomiting, Indigestion, Abdominal cramping, Tarry Stools , Other <Lopez Mcmahan - Last Filed: 12/11/17 20:26> *Physical Exam - Vital Signs Last Vital Signs Temp Pulse Resp BP Pulse Ox 98.8 F 97 H 18 121/80 98 12/11/17 19:45 12/11/17 19:45 12/11/17 19:45 12/11/17 19:45 12/11/17 19:45 12/11/17 20:23 General: in NAD HEad : NC/AT Neck: supple Lungs: CTA B/L Heart : RRR, No MRG, normal S1,S2 Abdomen: soft, ND, NT, normal active bowel sounds, no rebound tenderness. Legs: no edema, _ DP pulse. Neuro: CN II-XII grossly intact, no focal deficit, speech normal , normal gait, Psych: normal mood and effect. skin: tattos all over the body, warm dry. normal tregor. <MoisesmohamudFranciscoi - Last Filed: 12/11/17 20:26> - Vital Signs Last Vital Signs Temp Pulse Resp BP Pulse Ox 98.8 F 97 H 18 121/80 98 12/11/17 19:45 12/11/17 19:45 12/11/17 19:45 12/11/17 19:45 12/11/17 19:45 <Lucia Tobar - Last Filed: 12/11/17 22:46> Heart Score/ECG Review - ECG Intrepretation Rhythm: Regular Rhythm - Scarbro Scarbro: Normal <Francisco Mcmahani - Last Filed: 12/11/17 20:26> ED Treatment Course - ADDITIONAL ORDERS Additional order review: Laboratory Results 12/11/17 19:30 Urine Color Yellow Urine Appearance Clear Urine pH 5.0 Ur Specific [place] 1.024 Urine Protein Negative Urine Glucose (UA) Negative Urine Ketones Negative Urine Blood Negative Urine Nitrite Negative Urine Bilirubin Negative Urine Urobilinogen Negative Ur Leukocyte Esterase Trace Urine WBC (Auto) 2 Urine RBC (Auto) 1 Ur Epithelial Cells Rare Urine Mucus Rare <Lucia Tobar - Last Filed: 12/11/17 22:46> *DC/Admit/Observation/Transfer <EaglewilliamLopez - Last Filed: 12/11/17 20:26> <Lucia Tobar - Last Filed: 12/11/17 22:46> Diagnosis at time of Disposition: Urinary retention - Discharge Dispostion Disposition: HOME Condition at time of disposition: Stable - Patient Instructions Printed Discharge Instructions: DI for Urinary Retention in Men Additional Instructions: PLEASE CONTINUE YOUR MEDICATIONS PER YOUR [facility] STAFF
[2017-12-11 20:07] LABS: URINE APPEARANCE CLEAR; URINE BILIRUBIN NEGATIVE (NEGATIVE); URINE BLOOD NEGATIVE (NEGATIVE); URINE COLOR YELLOW; URINE GLUCOSE (UA) NEGATIVE (NEGATIVE); URINE KETONE NEGATIVE (NEGATIVE); URINE LEUK ESTERASE TRACE (NEGATIVE); URINE NITRITE NEGATIVE (NEGATIVE); URINE PROTEIN NEGATIVE (NEGATIVE); URINE UROBILINOGEN NEGATIVE mg/dL (0.2-1.0)
--- NOTE | 2017-12-11 20:18 | PDOC ---
Attending Attestation - Resident Resident Name: Lopez Mcmahan - ED Attending Attestation I have performed the following: I have examined & evaluated the patient, The case was reviewed & discussed with the resident, I agree w/resident's findings & plan, Exceptions are as noted - HPI HPI: 12/11/17 20:17 37-year-old male transferred by ambulance from [facility] through [place] because of complaints of urinary retention. Upon arrival, the patient was able to urinate without a problem. He has no fever, benign abdominal exam. I called [facility] detox and spoke to the nurse on [address] who is Ms Ahn and explained that he he is no longer urinary retention and will be discharged back to her facility - Physicial Exam PE: 12/11/17 20:23 wnwd 37 yo male in no acute distress requesting to smoke a cigarette. He has c/ o urinary retention and so was sent to the ER.Upon arrival he urinated and feels fine now head ncat eyes christina eomi neck supple lungs cta b/l cvs [id number] abd no rebound, no guarding ext no cellulitis neuro axox3,ambulatory, no gross focla neuro deficits skin multiple tattos skin appropriate - Medical Decision Making 12/11/17 20:25 [facility] detox, urinary retention -resolved [facility] notified and spoke w [address] nurse
[2017-12-11 20:47] LABS: EPI CELLS RARE /HPF (FEW); URINE MUCUS RARE
== END 2017-12-11 22:49 | disposition home or self-care (01) ==
LOC: JER 19:17
DX: R33.8 Other retention of urine (principal); F11.20 Opioid dependence, uncomplicated; F17.210 Nicotine dependence, cigarettes, uncomplicated
CPT/HCPCS: 81003; 81015; 99281-25